=== PATIENT | female | born 1990 | race Caucasian/White ===

== ENCOUNTER → 2021-03-13 10:50 | Outpatient (CLI) | payer OTHER, SELFPAY ==
--- NOTE | ~2021-03-13 | XR_ITS ---
EXAMINATION: XR hand RT 2V DATE: 03/13/2021 11:03 INDICATION: Right hand pain after falling down stairs TECHNIQUE: Posteroanterior and lateral views of the right hand were obtained. COMPARISON: None. FINDINGS: Alignment is normal. No fracture. Joint spaces are normal. Soft tissues are unremarkable. IMPRESSION: 1. Negative right hand radiographs. Reviewed, dictated and finalized at location A. ORT ERECTOR
== END ==
PROVIDERS: Visit Provider Nurse Practitioner Family
DX: M79.641 Pain in right hand (principal)
CPT/HCPCS: 73120

== ENCOUNTER 2021-11-05 09:55 | Emergency (ER) | payer OTHER, SELFPAY ==
--- NOTE | ~2021-11-05 | CT_ITS ---
EXAMINATION: CT abdomen pelvis w con DATE: 11/05/2021 11:44 INDICATION: Pelvic pain. Nausea. TECHNIQUE: Computed tomography (CT) of the abdomen and pelvis was performed with 100 mL Omnipaque 350 intravenous contrast. Automated exposure control and iterative reconstruction technique were employe d. The dose-length product was 410.57 mGy-cm. COMPARISON: None. FINDINGS: The visualized portions of the lung bases demonstrate minimal atelectasis. No pleural effus ion. The heart size is normal. No pericardial effusion. There are bilateral breast implants. The live r, gallbladder, spleen, pancreas, adrenal glands, and kidneys are normal. There are no dilated loops of bowel. The appendix is normal. There is physiologic fluid in the pelvis. There are no pathological ly enlarged lymph nodes. There is mild thoracolumbar spondylosis. IMPRESSION: 1. No specific etiology for the patient's symptoms. Reviewed, dictated and finalized at location A.
[2021-11-05 10:16] VITALS: BP 125/91; PULSE 67; RESP 18; TEMP 37; O2SAT 98
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
[2021-11-05 10:45] LABS: Basophils Percent Auto 0.5 % (0.2-1.2); Eosinophils Absolute Auto 0.1 K/mm3 (0-0.3); Eosinophils Percent Auto 0.8 % (0-4.4); Hematocrit 42.7 % (37.0-47.0); Immature Granulocyte Absolute 0.01 K/mm3 (0.00-0.031); Immature Granulocyte Percent A 0.1 % (0-0.5); Lymphocytes Absolute Auto 3.36 K/mm3 (0.9-3.2); Lymphocytes Percent Auto 42.5 % (18.3-44.2); Mean Corpuscular HGB Conc 35.1 g/dl (32-36); Mean Corpuscular Hemoglobin 33.7 pg (26-34); Mean Platelet Volume 9.2 fl (7.4-10.4); Monocytes Absolute Auto 0.7 K/mm3 (0.1-0.6); Monocytes Percent Auto 9.2 % (2.6-8.5); Neutrophils Absolute Auto 3.7 K/mm3 (1.3-6.7); Neutrophils Percent Auto 46.9 % (45.5-73.1); Platelet Count Result 219 k/mm3 (150-375); Red Blood Count 4.45 M/mm3 (4.2-5.4); Red Cell Distribution Width 11.9 % (11.5-14.5); White Blood Count 7.9 K/mm3 (4.5-10.0)
[2021-11-05 10:46] LABS: Appearance Urine Clear (Clear); Bilirubin Urine Negative (Negative); Blood Urine Negative (Negative); Color Urine Yellow (Yellow); Glucose Urine UA Negative (Negative); Ketones Urine Trace mg/dL (Negative); Leukocyte Esterase Ur Negative LEU/UL (Negative); Nitrate Urine Negative (Negative); Protein Urine Negative (Negative); Urobilinogen Urine 0.2 mg/dL (<2.0)
[2021-11-05 10:53] LABS: Alanine Aminotransferase 16 U/L (6-35); Albumin Level 4.5 g/dL (3.5-5.1); Alkaline Phosphatase 49 U/L (38-126); Anion Gap 12 mmol/L (8-16); Aspartate Amino Transferase 23 U/L (14-36); Bilirubin,Total 0.8 mg/dL (0.2-1.3); Blood Urea Nitrogen 12 mg/dL (7-17); Calcium 9.1 mg/dL (8.4-10.2); Carbon Dioxide 24 mmol/L (22-30); Chloride 102 mmol/L (98-107); Estimated CRCL calculation 94 ml/min; Estimated Glomerular Filt Rate > 60; Glucose 87 mg/dL (65-110); Sodium 138 mmol/L (137-145)
[2021-11-05] MEDS: SODIUM CHLORIDE 0.9% IV 1,000 ML 999 ML IV CONT (11:15)
[2021-11-05] MEDS: KETOROLAC 30 MG/ML VIAL (*BKC) IV PUSH (11:15)
[2021-11-05 11:22] LABS: Add Urine Microscopic? YES
--- NOTE | 2021-11-05 11:23 | PC.NURSE ---
Patient report received from LISANDRO Bowen. All questions answered and care of patient assumed.
[2021-11-05 11:25] LABS: Bacteria Urine 2+ /hpf; Squamous Epithelial Cell Urine Many /hpf (Few); WBC Urine 0-3 /hpf (0-3)
--- NOTE | 2021-11-05 11:42 | PC.NURSE ---
Patient off unit to CT>
[2021-11-05 12:02] VITALS: BP 106/66; PULSE 52; RESP 15; O2SAT 98
[2021-11-05 12:28] VITALS: PULSE 48; RESP 16; O2SAT 100
[2021-11-05 13:40] VITALS: BP 129/77; PULSE 57; RESP 18; O2SAT 100
== END 2021-11-05 13:43 | disposition home or self-care (01) ==
PROVIDERS: Emergency Provider Nurse Practitioner Family; PCP Family Medicine
DX: R10.2 Pelvic and perineal pain (principal); F12.90 Cannabis use, unspecified, uncomplicated
CPT/HCPCS: 36415; 74177; 80053; 81001; 81025; 85025; 96361; 96374; 99284; J1885; J7030; Q9967

== ENCOUNTER 2023-09-21 07:46 | Outpatient (CLI) | payer OTHER, SELFPAY ==
[2023-09-21 08:21] LABS: Anion Gap 10 mmol/L (4-12); Blood Urea Nitrogen 17 mg/dL (7-17); Carbon Dioxide 26 mmol/L (22-30); Chloride 103 mmol/L (98-107); Cholesterol 177 mg/dL (0-200); Estimated Glomerular Filt Rate > 60; Glucose 90 mg/dL (65-110); HDL Direct 51 mg/dL; Sodium 139 mmol/L (137-145); Triglycerides 86 mg/dL (<150)
[2023-09-21 08:32] LABS: LDL Cholesterol Direct 99 mg/dL
[2023-09-21 08:41] LABS: Hematocrit 43.6 % (37.0-47.0); Mean Corpuscular HGB Conc 34.4 g/dl (32-36); Mean Corpuscular Volume 95.8 fl (80-100); Mean Platelet Volume 9.4 fl (7.4-10.4); Platelet Count Result 225 k/mm3 (150-375); Red Blood Count 4.55 M/mm3 (4.2-5.4); Red Cell Distribution Width 12.1 % (11.5-14.5); White Blood Count 7.2 K/mm3 (4.5-10.0)
[2023-09-21 09:06] LABS: Vitamin D 25 Hydroxy 62.6 ng/mL
== END 2023-09-21 07:47 | disposition home or self-care (01) ==
PROVIDERS: PCP Family Medicine; Visit Provider Nurse Practitioner Family
DX: E55.9 Vitamin D deficiency, unspecified (principal); F32.9 Major depressive disorder, single episode, unspecified; R23.3 Spontaneous ecchymoses; Z13.1 Encounter for screening for diabetes mellitus; Z13.220 Encounter for screening for lipoid disorders; Z13.29 Encounter for screening for other suspected endocrine disorder
CPT/HCPCS: 36415; 80048; 80061; 82306; 82607; 84443; 85027